=== PATIENT | female | born 1965 | race African-American/Black ===

== ENCOUNTER 2020-05-12 23:57 | Inpatient (IN) | payer MEDICARE, SELFPAY ==
[2020-05-13] MEDS ORDERED: Calcium Carbonate 500 MG ChewTAB PO PRN (01:20)
[2020-05-13] MEDS ORDERED: Acetaminophen 325 MG TAB PO PRN (01:20)
[2020-05-13] MEDS ORDERED: Senokot S 8.6-50 MG TAB PO PRN (01:20)
[2020-05-13] MEDS ORDERED: Ondansetron PF 4 MG/2 ML Vial IVP PRN (01:20)
--- NOTE | 2020-05-13 01:37 | PDOC.FPRHP ---
- History of Present Illness Chief Complaint: SOB History of Present Illness: Pt is a 54 yo F with a PMH of HTN, RA, insomnia, chronic back pain, anxiety and depression who presents from the [facility] ED with chief complaint of SOB. She states she has been feeling weak and SOB since . She has noticed associated cough productive of green sputum, ESTRADA, dizziness, decreased appetite that has gradually gotten worse. She states she has been tolerating PO hydration without difficulty. She tried OTC remedies with no relief. Denies sick contacts. Was COVID tested 2 weeks ago because she had access to free COVID testing even though she was asymptomatic. She denies fever, chills, CP, vision changes, nausea, vomiting, abdominal pain, dysuria, syncope, diarrhea, swelling. She lives at home with her boyfriend and is able to independently perform her ADLs. She does not require home O2 and denies history of cardiac or lung disease. ED Course: In the [place] ED: 2g Rocephin, 500 mg Azithromycin, 1.4 L of NS, Ibuprofen, 60mg Methylprednisolone, Duonebs - Allergies/Adverse Reactions Allergies Allergy/AdvReac Type Severity Reaction Status Date / Time No Known Allergies Allergy Unverified 05/12/20 15:14 - History PMHx: HTN, RA, insomnia, chronic back pain, anxiety and depression PSHx: BTL FHx: Denies Social: on disability 2/2 RA. Denies tobacco, drug, alcohol use. - Review of Systems General: reports: weight/appetite/sleep changes (appetite changes). denies: fever/chills Eyes: denies: vision changes ENT: denies: nasal congestion Respiratory: reports: cough, shortness of breath, exercise intolerance Cardiovascular: denies: chest pain, palpitation, edema Gastrointestinal: denies: nausea, vomiting, diarrhea, abdominal pain, GI bleeding Genitourinary: denies: dysuria Skin: denies: rashes Neurological: reports: weakness. denies: syncope Psychological: denies: anxiety, depression - Vital signs BP: 123/79 HR: 106 RR: 40 Tmax: 98.9 Pox: 91% on 6L - Physical Exam Constitutional: NAD, awake, alert and oriented HEENT: normocephalic and atraumatic, conjunctiva clear, grossly normal vision, other (mucous membranes dry) Neck: supple, FROM Heart: RRR, normal S1/S2, pulses present, no edema Lungs: no respiratory distress -Lungs: crackles diffusely on exam in all lobes Abdomen: soft, non-tender, bowel sounds present, no masses/distention Musculoskeletal: normal structure, normal tone, ROM grossly normal Neurological: no focal deficit, CN II-XII intact Skin: good turgor Heme/Lymphatic: no unusual bruising or bleeding Psychiatric: normal mood and affect, good judgment and insight, intact recent and remote memory FMR H&P: A/P - Plan #Acute hypoxic respiratory failure and sepsis 2/2 PNA -CXR at [facility] showed extensive infiltrates, multifocal infection -patient tachypneic and tachycardic, 86% on RA with arrival of EMS -COVID, Flu neg -s/p 2g Rocephin, 500mg Azithro, 60mg Methylprednisolone at outside facility -patient has been requiring anywhere from 4-6L of O2 via NC -has been afebrile, WBC of 8.2 -will continue with Rocephin and Azithro -Duonebs q6H LUIS, q4H PRN -blood cultures pending -trend Procal -weane oxygen as able #Mild dehydration -decreased PO intake -mucus membranes dry on exam -continue MIVF, continue to monitor # Microcytic anemia -MCV of 76, Hgb of 11.2 on admission -will follow up iron studies #Hypokalemia -replace as indicated -follow up with AM CMP -Mg and Phos ordered #HTN -aware, patient states she is not on home meds -will follow up with pharmacy and restart home meds as indicated -Labetalol PRN #RA -patient states she takes Gabapentin for RA-? -will resume home med and follow up with pharmacy to confirm home meds #Insomnia -will add Melatonin QHS #Anxiety/ Depression -aware, patient says she does not take home meds -will follow up with pharmacy Dipo: admit to inpatient tele, anticipated LOS >48hours IVF: 125mL/hr of NS Diet: HH DVT Ppx: Lovenox Code: FULL PCP: [facility] FMR H&P: Upper Level - Plan Date/Time: 05/13/20 0136 Radha Whelan, have evaluated this patient and agree with findings/plan as outlined by newsroom intern resident. Pertinent changes/additions are listed here. HPI: 54 yo F with PMH of RA, HTN, insomnia, chronic back pain presented as a transfer from [place] ER for SOB, productive cough, headache that started four days ago. Associated symptoms include muscle pain in her legs, decreased appetite, light- headedness. Denies fever, loss of taste or smell, sick contacts, known COVID contacts. Upon EMS arrival, was satting 86% on RA. In [place] ED, she was tachycardic and tachypneic. CBC showed normal WBC, CXR showed bilateral infiltrates. Covid and influenza testing was negative. In [place] ED, she was given ceftriaxone, azithromycin, 1400 ml NS, and ibuprofen, and 60 mg methylprednisolone Physical exam: On physical exam, appears comfortable on 4L BNC. Bilateral inspiratory and expiratory crackles at bases of her lungs with tachypnea. Cardiac: RRR no murmurs. No swelling to her lower extremities. Pulses 2+ upper and lower extremities. Abdomen: soft and nontender, +BS. A/P: Acute hypoxic Respiratory Failure & Sepsis 2/2 bilateral multifocal pneumonia -Influenza and covid swab negative. Meets sepsis criteria as she is tachypneic and tachycardic. Lactic acid WNL. Was satting 86% on RA upon EMS arrival. -Continue rocephin and azithromycin -Supplemental oxygen, Keep O2 sats >92 -Blood cultures pending -Trend Procal Mild dehydration -Mucous membranes appears dry -s/p 1400 ml IV fluids. Continue MIVF, encourage PO hydration Microcytic anemia -Fe studies pending Hypokalemia -monitor and replete as necessary. Checking AM mag and phos. For other chronic problems, please see newsroom intern note. PCP: Dr Claros/Arsalan Code: Full Dispo: Admit to inpatient telemetry, LOS >2 midnights. Continue antibiotics and supplemental oxygen. Awaiting blood culture results. Drea Johnson MD PGY3
[2020-05-13] MEDS ORDERED: Potassium Chloride 20 MEQ TAB PO SCH (01:45)
[2020-05-13] MEDS ORDERED: Labetalol HCl 100 MG/20 ML VIAL SLOW IVP PRN (01:56)
[2020-05-13] MEDS ORDERED: NS1000 IV SCH (02:00)
[2020-05-13] MEDS ORDERED: Sodium Chloride 0.9% 1,000 ML IV SCH (02:00)
[2020-05-13] MEDS ORDERED: Melatonin 3 MG TAB PO PRN (02:07)
[2020-05-13 02:29] LABS: #Lymphocytes 0.7 thou/uL (1.20-3.40); #Monocytes 0.4 thou/uL (0.11-0.59); #Neutrophils 9.4 thou/uL (1.40-6.50); %Basophils 0.1 % (0.0-1.0); %Eosinophils 0.1 % (0.0-10.0); %Lymphocytes 6.5 % (21.0-51.0); %Monocytes 3.5 % (0.0-10.0); %Neutrophils 89.8 % (42.0-75.0); Hemoglobin 11.4 g/dL (12.0-16.0); Mean Corpuscular HGB CONC 31.9 g/dL (32.0-36.0); Mean Corpuscular Hemoglobin 24.6 pg (27.0-31.0); Mean Corpuscular Volume 77.3 fL (78.0-98.0); Mean Platelet Volume 8.7 fL (7.4-10.4); Platelet Count 239 thou/uL (130-400); RBC Distribution Width 14.7 % (11.5-14.5); Red Blood Cell (RBC) Count 4.61 mill/uL (4.20-5.40); White Blood Cell (WBC) Count 10.5 thou/uL (4.8-10.8)
[2020-05-13 03:16] LABS: ALT (SGPT) 20 U/L (8-55); AST (SGOT) 32 U/L (5-34); Albumin 3.3 g/dL (3.5-5.0); Alkaline Phosphatase 96 U/L (40-110); Anion Gap 17 mmol/L (10-20); BUN (Urea Nitrogen) 8 mg/dL (9.8-20.1); Bilirubin, Total 0.3 mg/dL (0.2-1.2); Calc. Creatinine Clearance 0 mL/min (70-130); Calcium 8.1 mg/dL (7.8-10.44); Carbon Dioxide 24 mmol/L (22-29); Chloride 107 mmol/L (98-107); Globulin 3.7 g/dL (2.4-3.5); Glucose 97 mg/dL (70-105); Magnesium 2.2 mg/dL (1.6-2.6); Potassium 3.6 mmol/L (3.5-5.1); Sodium 144 mmol/L (136-145)
[2020-05-13 04:00] LABS: Actual Bicarbonate (HCO3a) 28.4 mEq/L (22-28); Base Excess (BEa) 2.4 mEq/L (-2.0 to +3.0); CO2 Tension 49.9 mmHg (35.0-45.0); Calcium, Ionized (arterial) 1.13 mmol/L (1.12-1.30); Carboxyhemoglobin (COHb) 0.7 gm% (0.0-3.0); Hemoglobin (Hb) 11.9 g/dL (12.0-16.0); Potassium - ABG Lab 3.77 mmol/L (3.70-5.30); pH, Arterial 7.37 (7.35-7.45)
[2020-05-13 04:03] LABS: ALV-art Gradient 166.925 mmHg (0-20); O2 Tension (PaO2), arterial 55.9 mmHg (80.0-100.0); Puncture Site RRA
[2020-05-13 05:06] VITALS: BMI 40.1
[2020-05-13 05:34] LABS: Iron 10 ug/dL (50-170); Iron Binding Capacity, Total 275 mcg/dL (265-497)
[2020-05-13 05:38] LABS: Iron 17 ug/dL (50-170); Iron Binding Capacity, Total 276 mcg/dL (265-497); Phosphorus 2.6 mg/dL (2.3-4.7)
[2020-05-13 05:43] LABS: Actual Bicarbonate (HCO3a) 29.1 mEq/L (22-28); Base Excess (BEa) 3.3 mEq/L (-2.0 to +3.0); CO2 Tension 49.9 mmHg (35.0-45.0); Calcium, Ionized (arterial) 1.14 mmol/L (1.12-1.30); Carboxyhemoglobin (COHb) 0.7 gm% (0.0-3.0); Hemoglobin (Hb) 12.1 g/dL (12.0-16.0); O2 Tension (PaO2), arterial 63.6 mmHg (80.0-100.0); Potassium - ABG Lab 3.87 mmol/L (3.70-5.30); pH, Arterial 7.38 (7.35-7.45)
[2020-05-13 05:45] LABS: ALV-art Gradient 351.735 mmHg (0-20); Puncture Site RRA
[2020-05-13] MEDS ORDERED: Albuterol 200 PUFF (6.7GM INHALER) INH SCH (06:30)
[2020-05-13] MEDS ORDERED: PROVENTIL INHALER 6.7 G (200 INHALATIONS) INH SCH (06:30)
[2020-05-13] MEDS: Enoxaparin Sodium 40 MG/0.4 ML SYRINGE SC SCH (09:39)
[2020-05-13] MEDS: Azithromycin 500 MG in Sodium Chloride 0.9% 250 ML 250 ML IVPB SCH (09:39)
[2020-05-13] MEDS: cefTRIAXone\\ROCEPHIN 1 GM in Sodium Chloride 0.9% 100 ML IVPB SCH (09:39)
[2020-05-13 09:51] LABS: SARS-CoV-2 MS2 Positive; SARS-CoV-2 N Gene Negative; SARS-CoV-2 S Gene Negative; SARS-CoV-2 by NAA Not Detected (NotDetected); SARS-CoV-2 orf1ab Negative
--- NOTE | 2020-05-13 09:53 | RAD ---
PORTABLE CHEST: Date: 05/13/2020 COMPARISON: 05/12/2020 exam. HISTORY: Follow-up pneumonia. FINDINGS: Heart size is borderline. Extensive bilateral lung infiltrates are again noted. Some of the changes i n the upper lobes may be slightly more prominent than on the prior exam, although inspiration is less than optimal. IMPRESSION: Fairly extensive bilateral infiltrates, maybe slight worsening to the upper lobe changes. POS: OFF
[2020-05-13 10:25] LABS: Base Excess (BEa) 0.7 mEq/L (-2.0 to +3.0); CO2 Tension 39.3 mmHg (35.0-45.0); Calcium, Ionized (arterial) 1.15 mmol/L (1.12-1.30); Carboxyhemoglobin (COHb) 0.6 gm% (0.0-3.0); Hemoglobin (Hb) 12.1 g/dL (12.0-16.0); Potassium - ABG Lab 4.23 mmol/L (3.70-5.30); pH, Arterial 7.42 (7.35-7.45)
[2020-05-13 13:16] LABS: ALV-art Gradient 349.565 mmHg (0-20); O2 Tension (PaO2), arterial 50.5 mmHg (80.0-100.0); Puncture Site LBA
[2020-05-13] MEDS: Dexamethasone 4 MG TAB PO SCH (16:09)
[2020-05-13] MEDS: Mometasone 100 MCG/Formoterol 5 MCG 120 PUFF INHALER INH SCH (23:16)
--- NOTE | 2020-05-14 06:05 | PDOC.FM ---
- Subjective Subjective: Ms. Arias is feeling well this morning and is sitting up on EOB. She endorses a cough productive of green-tinged sputum. Her breaths are shallow and she makes minimal movement on IS. She denies CP, pain with deep breaths, dyspnea/SOB, ESTRADA, N/V/D. She states she is not eating well because she is not hungry, but that she has been drinking lots of fluids. She is wanting to go home but is still requiring HFNC at 60L with FiO2 in the 60s. - Objective Vital Signs & Weight: Vital Signs (12 hours) Temp Pulse Resp BP Pulse Ox 05/14/20 04:00 97 34 H 138/92 H 94 L 05/14/20 00:00 99.5 F 83 22 H 121/76 94 L 05/13/20 21:10 98.4 F 94 40 H 147/88 H 96 Weight Weight 90.265 kg I&O: 05/12/20 05/13/20 05/14/20 06:59 06:59 06:59 Intake Total 480 Output Total 600 Balance -120 Result Diagrams: 05/13/20 02:00 05/13/20 02:00 Phys Exam - Physical Examination Constitutional: NAD Neck: supple, full ROM Shallow breaths with poor air movememnt No audible wheezing/crackles Cardiovascular: RRR, no significant murmur Musculoskeletal: no edema Neurological: non-focal, moves all 4 limbs Psychiatric: normal affect Skin: no rash Dx/Plan - Plan Plan: This is a 54F who presented to the ED with SOB, found to have a b/l PNA. Acute hypoxic respiratory failure and sepsis 2/2 PNA Concern for COVID PNA despite neg Covid tests -CXR at [facility] showed extensive infiltrates, multifocal infection -Flu neg, COVID neg x2 -Afebrile, nml WBC, procal 0.12 -patient has been requiring HFNC at 60L with FiO2 in the 60s, since admission. RR has been in the 20-40s - RT to wean O2 as tolerated * If unable to make much progress, will consult pulm -ABGs have showed improved pCO2. Repeat ABG if pt deteriorates -will continue with Rocephin, Azithro, Decadron -Dulera ordered -blood cultures pending -Covid labs ordered: procal, d-dimer, CRP, LDH * Ferritin nml but with suspicion for Fe def anemia, it is unclear whether this is elevated from her baseline Mild dehydration -decreased PO intake -off mIVF. Monitor I&Os Microcytic anemia -MCV of 76, Hgb of 11.2 on admission -Iron studies show low Fe, low %sat. * Ferritin nml but it's possible this is elevated from baseline d/t inflammatory marker Hypokalemia, resolved -replace as indicated -Mg and Phos nml -am BMP pending HTN -patient states she is not on home meds. Will med rec today -Labetalol PRN -Monitor vitals RA -patient states she takes Gabapentin for RA -will med rec and continue home meds Insomnia -will add Melatonin QHS Anxiety/ Depression -patient says she does not take home meds Dipo: admit to inpatient tele, anticipated LOS >48hours IVF: SL Diet: HH DVT Ppx: Lovenox Code: FULL PCP: Harlan/Arsalan
[2020-05-14] MEDS ORDERED: Albuterol Sulfate 2.5 mg/3 ml Neb NEB PRN (06:45)
[2020-05-14] MEDS: cefTRIAXone\\ROCEPHIN 1 GM in Sodium Chloride 0.9% 100 ML IVPB SCH (08:40)
[2020-05-14] MEDS: Enoxaparin Sodium 40 MG/0.4 ML SYRINGE SC SCH (08:40)
[2020-05-14] MEDS: Azithromycin 500 MG in Sodium Chloride 0.9% 250 ML 250 ML IVPB SCH (08:43)
[2020-05-14 11:26] LABS: #Lymphocytes 0.9 thou/uL (1.20-3.40); #Neutrophils 6.7 thou/uL (1.40-6.50); %Basophils 0.3 % (0.0-1.0); %Eosinophils 0.1 % (0.0-10.0); %Lymphocytes 10.8 % (21.0-51.0); %Monocytes 11.5 % (0.0-10.0); %Neutrophils 77.3 % (42.0-75.0); Mean Corpuscular Hemoglobin 23.8 pg (27.0-31.0); Mean Corpuscular Volume 76.6 fL (78.0-98.0); Mean Platelet Volume 8.4 fL (7.4-10.4); Platelet Count 343 thou/uL (130-400); RBC Distribution Width 14.8 % (11.5-14.5); Red Blood Cell (RBC) Count 5.03 mill/uL (4.20-5.40); White Blood Cell (WBC) Count 8.7 thou/uL (4.8-10.8)
[2020-05-14 11:54] LABS: Anion Gap 16 mmol/L (10-20); BUN (Urea Nitrogen) 15 mg/dL (9.8-20.1); CRP (Inflammatory) 10.82 mg/dL (= or < 0.5); Calc. Creatinine Clearance 145 mL/min (70-130); Calcium 8.8 mg/dL (7.8-10.44); Carbon Dioxide 26 mmol/L (22-29); Chloride 104 mmol/L (98-107); Glucose 111 mg/dL (70-105); Potassium 3.7 mmol/L (3.5-5.1); Sodium 142 mmol/L (136-145)
[2020-05-14] MEDS: Ketotifen Fumarate 0.025% Ophth Soln 5 ml Bottle R EYE SCH ×2 (12:14→19:57)
[2020-05-14] MEDS: Ketotifen Fumarate 0.025% Ophth Soln 5 ml Bottle L EYE SCH ×2 (12:14→19:57)
[2020-05-14] MEDS: Mometasone 100 MCG/Formoterol 5 MCG 120 PUFF INHALER INH SCH ×2 (14:03→19:42)
[2020-05-14] MEDS: Dexamethasone 4 MG TAB PO SCH (17:40)
[2020-05-14 22:20] LABS: SARS-CoV-2 IgG Ab Reactive (NonReactive); SARS-CoV-2 IgG Index 7.34 S/CO (< 1.40)
[2020-05-15 05:29] LABS: #Lymphocytes 0.8 thou/uL (1.20-3.40); #Monocytes 0.5 thou/uL (0.11-0.59); %Eosinophils 0.1 % (0.0-10.0); %Lymphocytes 10.8 % (21.0-51.0); %Monocytes 6.4 % (0.0-10.0); %Neutrophils 82.7 % (42.0-75.0); Hemoglobin 11.5 g/dL (12.0-16.0); Mean Corpuscular HGB CONC 31.5 g/dL (32.0-36.0); Mean Corpuscular Hemoglobin 23.7 pg (27.0-31.0); Mean Corpuscular Volume 75.4 fL (78.0-98.0); Mean Platelet Volume 8.2 fL (7.4-10.4); Platelet Count 345 thou/uL (130-400); RBC Distribution Width 14.4 % (11.5-14.5); Red Blood Cell (RBC) Count 4.87 mill/uL (4.20-5.40); White Blood Cell (WBC) Count 7.3 thou/uL (4.8-10.8)
[2020-05-15 05:56] LABS: ALT (SGPT) 22 U/L (8-55); AST (SGOT) 24 U/L (5-34); Albumin 3.3 g/dL (3.5-5.0); Alkaline Phosphatase 85 U/L (40-110); Anion Gap 14 mmol/L (10-20); BUN (Urea Nitrogen) 16 mg/dL (9.8-20.1); Bilirubin, Total 0.3 mg/dL (0.2-1.2); Calc. Creatinine Clearance 150 mL/min (70-130); Calcium 8.5 mg/dL (7.8-10.44); Carbon Dioxide 28 mmol/L (22-29); Chloride 105 mmol/L (98-107); Globulin 3.9 g/dL (2.4-3.5); Glucose 107 mg/dL (70-105); Potassium 4.2 mmol/L (3.5-5.1); Protein, Total 7.2 g/dL (6.0-8.3); Sodium 143 mmol/L (136-145)
--- NOTE | 2020-05-15 05:57 | PDOC.FM ---
- Subjective Subjective: Ms. Arias is doing well this morning and wants to go home. She continues to require HFNC at 60L and FiO2 in the 60s. She denies SOB, dyspnea, pleuritic pain, CP, N/V/D. She endorses cough productive of clear sputum. She has been using her IS and can raise the marker to 500 but continues to have poor effort. She has been using the dulera inhaler and is adamant she just wants to go home with some O2. - Objective Vital Signs & Weight: Vital Signs (12 hours) Temp Pulse Resp BP Pulse Ox 05/15/20 04:13 96 05/15/20 04:08 98.4 F 66 34 H 140/79 95 05/14/20 23:55 98.5 F 74 22 H 132/75 97 05/14/20 19:55 98.4 F 84 28 H 121/75 93 L Weight Weight 90.265 kg I&O: 05/13/20 05/14/20 05/15/20 06:59 06:59 06:59 Intake Total 480 980 Output Total 600 500 Balance -120 480 Result Diagrams: 05/15/20 05:11 05/15/20 05:11 Phys Exam - Physical Examination Constitutional: NAD Neck: supple, full ROM Respiratory: clear to auscultation bilateral (poor effort and air movement) Cardiovascular: RRR, no significant murmur Neurological: non-focal, moves all 4 limbs Psychiatric: normal affect Dx/Plan - Plan Plan: This is a 54F who presented to the ED with SOB, found to have a b/l PNA. Acute hypoxic respiratory failure and sepsis 2/2 Covid PNA -Positive Covid Ab test * Start Remdesivir -patient has been requiring HFNC at 60L with FiO2 in the 60s, since admission. RR has been in the 20-40s * RT to wean O2 as tolerated -ABG if pt deteriorates -will continue with Rocephin, Azithro, Decadron, Dulera, Lovenox -procal 0.12 -> 0.07 -Covid labs ordered: * Ferritin nml but with suspicion for Fe def anemia, it is unclear whether this is elevated from her baseline * CRP 10.82 * LDH 574 * D-dimer 2.96 -> 3.06 -CBC, CMP, D-dimer trending -blood cultures NGTD Mild dehydration -Monitor I&Os Microcytic anemia -MCV of 76, Hgb of 11.2 on admission -Iron studies show low Fe, low %sat. * Ferritin nml but it's possible this is elevated from baseline d/t inflammatory marker -Fe supplementation qod Hypokalemia, resolved -am BMPs. Replete as needed HTN -patient states she is not on home meds -Labetalol PRN -Monitor vitals RA -patient states she takes Gabapentin for RA but pharmacy states Rx was last filled in 2019 -Currently, pt denying any pain/discomfort Insomnia -will add Melatonin QHS Anxiety/ Depression -patient says she does not take home meds Dipo: admit to inpatient tele, anticipated LOS >48hours IVF: SL Diet: HH DVT Ppx: Lovenox Code: FULL PCP: Harlan/Arsalan
[2020-05-15] MEDS: Mometasone 100 MCG/Formoterol 5 MCG 120 PUFF INHALER INH SCH ×2 (06:23→18:17)
[2020-05-15] MEDS: cefTRIAXone\\ROCEPHIN 1 GM in Sodium Chloride 0.9% 100 ML IVPB SCH (08:08)
[2020-05-15] MEDS: Enoxaparin Sodium 40 MG/0.4 ML SYRINGE SC SCH (08:09)
[2020-05-15] MEDS: Ferrous Sulfate 325 MG TAB PO SCH (08:09)
[2020-05-15] MEDS: Ketotifen Fumarate 0.025% Ophth Soln 5 ml Bottle L EYE SCH ×2 (08:10→20:27)
[2020-05-15] MEDS: Ketotifen Fumarate 0.025% Ophth Soln 5 ml Bottle R EYE SCH ×2 (08:11→20:28)
[2020-05-15] MEDS ORDERED: REMDESIVIR (EUA) 200 MG in Sodium Chloride 0.9% 250 ML 210 ML IV SCH (09:00)
[2020-05-15] MEDS: Azithromycin 500 MG in Sodium Chloride 0.9% 250 ML 250 ML IVPB SCH (11:19)
[2020-05-15] MEDS: Dexamethasone 4 MG TAB PO SCH (18:13)
[2020-05-16 05:21] LABS: #Lymphocytes 1.1 thou/uL (1.20-3.40); #Monocytes 0.9 thou/uL (0.11-0.59); #Neutrophils 7.7 thou/uL (1.40-6.50); %Basophils 0.3 % (0.0-1.0); %Eosinophils 0.1 % (0.0-10.0); %Monocytes 9.5 % (0.0-10.0); %Neutrophils 79.1 % (42.0-75.0); Hemoglobin 11.8 g/dL (12.0-16.0); Mean Corpuscular HGB CONC 31.5 g/dL (32.0-36.0); Mean Corpuscular Hemoglobin 23.9 pg (27.0-31.0); Mean Corpuscular Volume 75.8 fL (78.0-98.0); Mean Platelet Volume 8.4 fL (7.4-10.4); Platelet Count 372 thou/uL (130-400); RBC Distribution Width 14.6 % (11.5-14.5); Red Blood Cell (RBC) Count 4.94 mill/uL (4.20-5.40); White Blood Cell (WBC) Count 9.8 thou/uL (4.8-10.8)
[2020-05-16 05:36] LABS: ALT (SGPT) 20 U/L (8-55); AST (SGOT) 20 U/L (5-34); Albumin 3.3 g/dL (3.5-5.0); Alkaline Phosphatase 79 U/L (40-110); Anion Gap 16 mmol/L (10-20); BUN (Urea Nitrogen) 14 mg/dL (9.8-20.1); Bilirubin, Direct 0.1 mg/dL (0.1-0.3); Bilirubin, Total 0.3 mg/dL (0.2-1.2); Calc. Creatinine Clearance 152 mL/min (70-130); Calcium 8.5 mg/dL (7.8-10.44); Carbon Dioxide 24 mmol/L (22-29); Chloride 105 mmol/L (98-107); Globulin 3.8 g/dL (2.4-3.5); Glucose 98 mg/dL (70-105); Potassium 4.3 mmol/L (3.5-5.1); Protein, Total 7.1 g/dL (6.0-8.3); Sodium 141 mmol/L (136-145)
[2020-05-16] MEDS: Mometasone 100 MCG/Formoterol 5 MCG 120 PUFF INHALER INH SCH ×2 (06:09→21:29)
--- NOTE | 2020-05-16 06:21 | PDOC.FM ---
- Subjective Subjective: Ms. Arias is doing well this morning. She continues to deny dyspnea/SOB/CP/N/V/D. She is feeling well and enjoyed working with PT yesterday. She continues to insist she is ready to go home with some O2. She was at SpO2 9 0% at 6L NC. I will see if she can increase her SpO2 at this level. - Objective Vital Signs & Weight: Vital Signs (12 hours) Temp Pulse Resp BP Pulse Ox 05/16/20 03:51 98.4 F 78 20 135/74 97 05/16/20 00:05 98.1 F 82 20 146/75 H 100 05/15/20 20:15 98.4 F 80 20 145/70 H 98 05/15/20 19:53 94 L Weight Weight 90.265 kg I&O: 05/14/20 05/15/20 05/16/20 06:59 06:59 06:59 Intake Total 480 1280 1680 Output Total 600 500 Balance -880 252 8409 Result Diagrams: 05/16/20 05:01 05/16/20 05:01 Phys Exam - Physical Examination Constitutional: NAD Neck: supple Coarse breath sounds b/l Cardiovascular: RRR, no significant murmur Neurological: non-focal, moves all 4 limbs Psychiatric: normal affect, A&O x 3 Skin: no rash Dx/Plan - Plan Plan: This is a 54F who presented to the ED with SOB, found to have a b/l PNA. Acute hypoxic respiratory failure and sepsis 2/2 Covid PNA -Positive Covid Ab test. On Remdesivir -patient has been requiring HFNC at 60L with FiO2 in the 60s, since admission. * RT to wean O2 as tolerated * ABG if pt deteriorates -RR now in the 20s. Will attempt de-escalating to NC today -Consider CTA to r/o PE if resp status fails to improve -will continue with Rocephin, Azithro, Decadron, Dulera, Lovenox -CBC, CMP, D-dimer trending * D-dimer 2.96 -> 3.06 -> 3.24 -PT consulted to help limit deconditioning Mild dehydration -Monitor I&Os Microcytic anemia -MCV of 76, Hgb of 11.2 on admission -Iron studies show low Fe, low %sat. * Ferritin nml but it's possible this is elevated from baseline d/t inflammatory marker -Fe supplementation qod Hypokalemia, resolved -am BMPs. Replete as needed HTN -patient states she is not on home meds -Labetalol PRN -Monitor vitals RA -patient states she takes Gabapentin for RA but pharmacy states Rx was last filled in 2019 -Currently, pt denying any pain/discomfort Insomnia -will add Melatonin QHS Anxiety/ Depression -patient says she does not take home meds Dipo: admit to inpatient tele, anticipated LOS >48hours IVF: SL Diet: HH DVT Ppx: Lovenox Code: FULL PCP: [facility]/Arsalan
[2020-05-16] MEDS: Enoxaparin Sodium 40 MG/0.4 ML SYRINGE SC SCH (07:51)
[2020-05-16] MEDS: cefTRIAXone\\ROCEPHIN 1 GM in Sodium Chloride 0.9% 100 ML IVPB SCH (07:52)
[2020-05-16] MEDS: hydrOXYzine 10 MG TAB PO PRN (07:53)
[2020-05-16] MEDS: Ketotifen Fumarate 0.025% Ophth Soln 5 ml Bottle R EYE SCH ×2 (09:00→21:30)
[2020-05-16] MEDS: Ketotifen Fumarate 0.025% Ophth Soln 5 ml Bottle L EYE SCH ×2 (09:00→21:30)
[2020-05-16] MEDS: REMDESIVIR (EUA) 100 MG in Sodium Chloride 0.9% 250 ML 230 ML IV SCH (09:00)
[2020-05-16] MEDS: Dexamethasone 4 MG TAB PO SCH (18:21)
[2020-05-17] MEDS: hydrOXYzine 10 MG TAB PO PRN (00:47)
--- NOTE | 2020-05-17 05:32 | PDOC.FM ---
- Subjective Subjective: Ms. Arias is doing well this morning and continues to state she wants to go home. She continues to deny dyspnea, SOB, CP, N/V/D but her respiratory effort remains poor and she can only achieve ~250mL on IS. She is satting in the mid- 90s on HFNC 55L, 78% FiO2. - Objective Vital Signs & Weight: Vital Signs (12 hours) Temp Pulse Resp BP BP Pulse Ox 05/17/20 01:49 94 L 05/17/20 00:00 97.9 F 95 18 118/73 94 L 05/16/20 19:35 98.5 F 97 18 119/75 91 L 05/16/20 18:00 98.8 F 89 25 H 143/82 H 92 L Weight Weight 90.265 kg I&O: 05/15/20 05/16/20 05/17/20 06:59 06:59 06:59 Intake Total 1280 1680 Output Total 500 Balance 780 1680 Result Diagrams: 05/17/20 06:51 05/17/20 06:51 Phys Exam - Physical Examination Constitutional: NAD Neck: supple Coarse breath sounds, poor resp effort Cardiovascular: RRR, no significant murmur Neurological: non-focal, moves all 4 limbs Psychiatric: normal affect, A&O x 3 Skin: no rash Dx/Plan - Plan Plan: This is a 54F who presented to the ED with SOB, found to have a b/l PNA. Acute hypoxic respiratory failure and sepsis 2/2 Covid PNA -Positive Covid Ab test. On Remdesivir -patient has been requiring HFNC. Attempted de-escalation to NC yesterday but had to be put back on HFNC * RT to wean O2 as tolerated * ABG if pt deteriorates -Consider CTA to r/o PE if resp status fails to improve -will continue Decadron, Dulera, Lovenox -CBC, CMP, D-dimer trending * D-dimer 2.96 > > 3.65 -PT consulted to help limit deconditioning -Continue encouraging use of IS Mild dehydration -Monitor I&Os Microcytic anemia -MCV of 76, Hgb of 11.2 on admission -Iron studies show low Fe, low %sat. * Ferritin nml but it's possible this is elevated from baseline d/t inflammatory marker -Fe supplementation qod Hypokalemia, resolved -am BMPs. Replete as needed HTN -patient states she is not on home meds -Labetalol PRN -Monitor vitals RA -patient states she takes Gabapentin for RA but pharmacy states Rx was last filled in 2019 -Currently, pt denying any pain/discomfort Insomnia -will add Melatonin QHS Anxiety/ Depression -patient says she does not take home meds Dipo: admit to inpatient tele, anticipated LOS >48hours IVF: SL Diet: HH DVT Ppx: Lovenox Code: FULL PCP: [facility] Addendum - Attending - Attending Attestation Date/Time: 05/17/20 0587 I personally evaluated the patient and discussed the management with Dr. Ginger Jose. I agree with the History, Examination, Assessment and Plan documented above with any addition or exceptions noted below. The patient had to be put back on high-flow oxygen yesterday. She wants to go home but I counseled on importance of staying until oxygen requirement is decreased. continue remdesivir.
[2020-05-17 07:33] LABS: ALT (SGPT) 17 U/L (8-55); AST (SGOT) 20 U/L (5-34); Albumin 3.4 g/dL (3.5-5.0); Alkaline Phosphatase 86 U/L (40-110); Anion Gap 17 mmol/L (10-20); BUN (Urea Nitrogen) 14 mg/dL (9.8-20.1); Bilirubin, Total 0.4 mg/dL (0.2-1.2); Calc. Creatinine Clearance 150 mL/min (70-130); Calcium 8.8 mg/dL (7.8-10.44); Carbon Dioxide 23 mmol/L (22-29); Chloride 105 mmol/L (98-107); Globulin 4.1 g/dL (2.4-3.5); Glucose 90 mg/dL (70-105); Potassium 4.3 mmol/L (3.5-5.1); Protein, Total 7.5 g/dL (6.0-8.3); Sodium 141 mmol/L (136-145)
[2020-05-17 08:05] LABS: Hemoglobin 12.5 g/dL (12.0-16.0); Mean Corpuscular HGB CONC 31.5 g/dL (32.0-36.0); Mean Corpuscular Hemoglobin 23.9 pg (27.0-31.0); Mean Corpuscular Volume 75.7 fL (78.0-98.0); Mean Platelet Volume 8.3 fL (7.4-10.4); Platelet Count 405 thou/uL (130-400); Red Blood Cell (RBC) Count 5.22 mill/uL (4.20-5.40); White Blood Cell (WBC) Count 11.8 thou/uL (4.8-10.8)
[2020-05-17] MEDS: Enoxaparin Sodium 40 MG/0.4 ML SYRINGE SC SCH (08:07)
[2020-05-17] MEDS: Ferrous Sulfate 325 MG TAB PO SCH (08:07)
[2020-05-17] MEDS: Mometasone 100 MCG/Formoterol 5 MCG 120 PUFF INHALER INH SCH ×2 (08:12→19:41)
[2020-05-17] MEDS: REMDESIVIR (EUA) 100 MG in Sodium Chloride 0.9% 250 ML 230 ML IV SCH (09:05)
[2020-05-17] MEDS: Ketotifen Fumarate 0.025% Ophth Soln 5 ml Bottle L EYE SCH ×2 (09:38→21:00)
[2020-05-17] MEDS: Ketotifen Fumarate 0.025% Ophth Soln 5 ml Bottle R EYE SCH ×2 (09:38→21:00)
[2020-05-17 10:43] LABS: Anisocytosis SLIGHT = 6-15 cells (100X) (0-5/hpf); Lymphocytes 15 % (21-51); MDiff Complete? YES; Monocytes 6 % (0-10); Neutrophil 79 % (42-75); Platelet Morphology Comment Appears Increased; Polychromasia SLIGHT = 2-3 cells (100X) (0-2/hpf)
[2020-05-17] MEDS: Dexamethasone 4 MG TAB PO SCH (16:42)
--- NOTE | 2020-05-18 06:09 | PDOC.FM ---
- Subjective Subjective: Ms. Arias is doing well this morning. She continues to desire to go home. She continues to deny SOB, dyspnea, CP, N/V/D. She continues to work with PT. - Objective Vital Signs & Weight: Vital Signs (12 hours) Temp Pulse Resp BP BP Pulse Ox 05/18/20 04:00 97.8 F 93 20 116/76 91 L 05/18/20 00:58 98.0 F 87 18 123/77 94 L 05/18/20 00:19 93 L 05/17/20 20:26 89 163/98 H 05/17/20 20:10 97.7 F 89 22 H 168/93 H 93 L Weight Weight 90.265 kg I&O: 05/16/20 05/17/20 05/18/20 06:59 06:59 06:59 Intake Total 1680 840 Balance 1680 840 Result Diagrams: 05/18/20 05:52 05/18/20 05:52 Phys Exam - Physical Examination Constitutional: NAD Neck: supple Respiratory: clear to auscultation bilateral Poor effort and air movement Cardiovascular: RRR, no significant murmur Neurological: non-focal, moves all 4 limbs Psychiatric: normal affect, A&O x 3 Dx/Plan - Plan Plan: This is a 54F who presented to the ED with SOB, found to have a b/l PNA. Acute hypoxic respiratory failure and sepsis 2/2 Covid PNA -Positive Covid Ab test. Today is day 4 of Remdesivir -patient has been requiring HFNC. Attempted de-escalation to NC but had to be put back on HFNC * RT to wean O2 as tolerated * ABG if pt deteriorates -Consider CTA to r/o PE if resp status fails to improve -will continue Decadron, Dulera, Lovenox -CBC, CMP trending -PT consulted to help limit deconditioning -Continue encouraging use of IS Mild dehydration -Monitor I&Os Microcytic anemia -Fe supplementation qod Hypokalemia, resolved -am CMPs. Replete as needed HTN -patient states she is not on home meds -Labetalol PRN -Monitor vitals RA -Currently, pt denying any pain/discomfort Insomnia -will add Melatonin QHS Anxiety/ Depression -patient says she does not take home meds Dipo: admit to inpatient tele, anticipated LOS >48hours IVF: SL Diet: HH DVT Ppx: Lovenox Code: FULL PCP: [facility] Addendum - Attending - Attending Attestation Date/Time: 05/18/20 8636 I personally evaluated the patient and discussed the management with Dr. Ginger Jose. I agree with the History, Examination, Assessment and Plan documented above with any addition or exceptions noted below. Patient is feeling better however she remains on high flow with sats right at 90%. Will wean as tolerated. Added incentive spirometer. Continue current mgmt.
[2020-05-18 06:32] LABS: #Monocytes 0.8 thou/uL (0.11-0.59); #Neutrophils 10.5 thou/uL (1.40-6.50); %Basophils 0.3 % (0.0-1.0); %Eosinophils 0.3 % (0.0-10.0); %Lymphocytes 7.7 % (21.0-51.0); %Monocytes 6.2 % (0.0-10.0); %Neutrophils 85.5 % (42.0-75.0); Hemoglobin 12.5 g/dL (12.0-16.0); Mean Corpuscular HGB CONC 31.1 g/dL (32.0-36.0); Mean Corpuscular Hemoglobin 23.8 pg (27.0-31.0); Mean Corpuscular Volume 76.6 fL (78.0-98.0); Mean Platelet Volume 8.6 fL (7.4-10.4); Platelet Count 418 thou/uL (130-400); Red Blood Cell (RBC) Count 5.25 mill/uL (4.20-5.40); White Blood Cell (WBC) Count 12.3 thou/uL (4.8-10.8)
[2020-05-18 06:48] LABS: ALT (SGPT) 17 U/L (8-55); AST (SGOT) 18 U/L (5-34); Albumin 3.3 g/dL (3.5-5.0); Alkaline Phosphatase 79 U/L (40-110); Anion Gap 16 mmol/L (10-20); BUN (Urea Nitrogen) 15 mg/dL (9.8-20.1); Bilirubin, Total 0.4 mg/dL (0.2-1.2); Calc. Creatinine Clearance 147 mL/min (70-130); Calcium 8.9 mg/dL (7.8-10.44); Carbon Dioxide 23 mmol/L (22-29); Chloride 102 mmol/L (98-107); Glucose 97 mg/dL (70-105); Potassium 4.2 mmol/L (3.5-5.1); Protein, Total 7.3 g/dL (6.0-8.3); Sodium 137 mmol/L (136-145)
[2020-05-18] MEDS: Ketotifen Fumarate 0.025% Ophth Soln 5 ml Bottle L EYE SCH ×2 (10:00→21:01)
[2020-05-18] MEDS: Enoxaparin Sodium 40 MG/0.4 ML SYRINGE SC SCH (10:15)
[2020-05-18] MEDS: Ketotifen Fumarate 0.025% Ophth Soln 5 ml Bottle R EYE SCH ×2 (10:15→21:01)
[2020-05-18] MEDS: REMDESIVIR (EUA) 100 MG in Sodium Chloride 0.9% 250 ML 230 ML IV SCH (10:18)
[2020-05-18] MEDS: Dexamethasone 4 MG TAB PO SCH (16:25)
--- NOTE | 2020-05-19 05:46 | PDOC.FM ---
- Subjective Subjective: Mrs. Arias is not happy this morning and states she is leaving today. She wants to come off HFNC and be sent home with NC as she has people to look after her at home and knows her sats will stay good if she just relaxes. She states she is going to call her family and get home O2 set up for her today so she can leave by noon. She is still on HFNC 55L/78% but was satting at 97% on it this am. She continues to deny dyspnea, SOB, CP, N/V/D. On IS, she is only able to achieve 250mL. - Objective Vital Signs & Weight: Vital Signs (12 hours) Temp Pulse Resp BP Pulse Ox 05/19/20 04:00 98.5 F 84 18 114/76 97 05/19/20 00:00 98.1 F 84 18 115/77 94 L Weight Weight 90.265 kg I&O: 05/17/20 05/18/20 05/19/20 06:59 06:59 06:59 Intake Total 840 1080 Balance 840 1080 Result Diagrams: 05/19/20 06:13 05/19/20 06:13 Phys Exam - Physical Examination Constitutional: NAD Neck: supple Coarse breath sounds, poor inspiratory volume Cardiovascular: RRR, no significant murmur Neurological: non-focal, moves all 4 limbs Psychiatric: normal affect (upset), A&O x 3 Skin: no rash Dx/Plan - Plan Plan: This is a 54F who presented to the ED with SOB, found to have a b/l PNA. Acute hypoxic respiratory failure and sepsis 2/2 Covid PNA -Positive Covid Ab test. Today is day 5 of Remdesivir -patient has been requiring HFNC. * RT to wean O2 as tolerated * ABG if pt deteriorates -Consider CTA to r/o PE if resp status fails to improve -will continue Decadron, Dulera, Lovenox -PT consulted to help limit deconditioning -Continue encouraging use of IS -Spiritual consult Mild dehydration -Monitor I&Os Microcytic anemia -Fe supplementation qod Hypokalemia, resolved -am CMPs. Replete as needed HTN -patient states she is not on home meds -Labetalol PRN -Monitor vitals RA -Currently, pt denying any pain/discomfort Insomnia -will add Melatonin QHS Anxiety/ Depression -patient says she does not take home meds Dipo: admit to inpatient tele, recommended LOS >48hours although pt may leave AMA today. IVF: SL Diet: HH DVT Ppx: Lovenox Code: FULL PCP: [facility] Addendum - Attending - Attending Attestation Date/Time: 05/19/20 1201 I personally evaluated the patient and discussed the management with Dr. Gonsalves. I agree with the History, Examination, Assessment and Plan documented above with any addition or exceptions noted below. Patient adament about leaving today despite being on HFNC. Will give trial of NC but suspect that her COVID pneumonia and hypoxia is still severe enough that she will not tolerate. She has been counselled extensively by multiple physicians about the dangers of leaving the hospital if not deemed medically stable.
[2020-05-19 07:04] LABS: #Eosinphils 0.1 thou/uL (0.0-0.7); #Lymphocytes 0.7 thou/uL (1.20-3.40); #Monocytes 0.6 thou/uL (0.11-0.59); #Neutrophils 10.2 thou/uL (1.40-6.50); %Eosinophils 0.5 % (0.0-10.0); %Lymphocytes 6.2 % (21.0-51.0); %Neutrophils 88.3 % (42.0-75.0); Hemoglobin 12.3 g/dL (12.0-16.0); Mean Corpuscular HGB CONC 30.6 g/dL (32.0-36.0); Mean Corpuscular Hemoglobin 23.2 pg (27.0-31.0); Mean Corpuscular Volume 75.7 fL (78.0-98.0); Mean Platelet Volume 8.4 fL (7.4-10.4); Platelet Count 422 thou/uL (130-400); White Blood Cell (WBC) Count 11.5 thou/uL (4.8-10.8)
[2020-05-19 07:23] LABS: ALT (SGPT) 15 U/L (8-55); AST (SGOT) 14 U/L (5-34); Albumin 3.3 g/dL (3.5-5.0); Alkaline Phosphatase 75 U/L (40-110); Anion Gap 16 mmol/L (10-20); BUN (Urea Nitrogen) 14 mg/dL (9.8-20.1); Bilirubin, Total 0.4 mg/dL (0.2-1.2); Calc. Creatinine Clearance 155 mL/min (70-130); Calcium 8.9 mg/dL (7.8-10.44); Carbon Dioxide 25 mmol/L (22-29); Chloride 101 mmol/L (98-107); Glucose 93 mg/dL (70-105); Potassium 4.2 mmol/L (3.5-5.1); Protein, Total 7.3 g/dL (6.0-8.3); Sodium 138 mmol/L (136-145)
[2020-05-19] MEDS: Ferrous Sulfate 325 MG TAB PO SCH (09:40)
[2020-05-19] MEDS: REMDESIVIR (EUA) 100 MG in Sodium Chloride 0.9% 250 ML 230 ML IV SCH (09:40)
[2020-05-19] MEDS: Enoxaparin Sodium 40 MG/0.4 ML SYRINGE SC SCH (09:40)
[2020-05-19] MEDS: Ketotifen Fumarate 0.025% Ophth Soln 5 ml Bottle L EYE SCH ×2 (09:55→21:00)
[2020-05-19] MEDS: Mometasone 100 MCG/Formoterol 5 MCG 120 PUFF INHALER INH SCH (09:55)
[2020-05-19] MEDS: Ketotifen Fumarate 0.025% Ophth Soln 5 ml Bottle R EYE SCH ×2 (09:55→21:00)
[2020-05-19] MEDS: Dexamethasone 4 MG TAB PO SCH (20:28)
--- NOTE | 2020-05-20 07:04 | PDOC.FM ---
- Subjective Subjective: Trial of 6L NC yesterday, was placed back onto HFNC yesterday evening. This morning, reports she is feeling well. Continues to deny any SOB or cough. States she is going home today, threatens to leave AMA. - Objective Vital Signs & Weight: Vital Signs (12 hours) Temp Pulse Resp BP BP Pulse Ox 05/20/20 04:00 97.5 F L 84 20 118/79 97 05/20/20 00:00 98.2 F 87 20 104/74 97 05/19/20 19:41 99.0 F 103 H 18 101/64 95 Weight Weight 90.265 kg I&O: 05/19/20 05/20/20 05/21/20 06:59 06:59 06:59 Intake Total 1080 Balance 1080 Result Diagrams: 05/19/20 06:13 05/19/20 06:13 Phys Exam - Physical Examination Constitutional: NAD HEENT: moist MMs coarse breath sounds bilaterally Cardiovascular: RRR, no significant murmur Musculoskeletal: no edema, pulses present Neurological: non-focal, moves all 4 limbs Psychiatric: normal affect, A&O x 3 Skin: no rash, normal turgor Dx/Plan - Plan Plan: This is a 54F who presented to the ED with SOB, found to have a b/l PNA. Acute hypoxic respiratory failure and sepsis 2/2 Covid PNA Positive Covid Ab test. Completed course of remdesivir this admission. Currently on HFNC 55L/79%. - will allow trial of NC again today per patient request - Advised that we do not recommend she leave AMA due to need for supportive oxygen therapy - Consider CTA to r/o PE if resp status fails to improve - will continue Decadron, Dulera, Lovenox - PT consulted to help limit deconditioning - continue incentive spirometer - currently only drawing 200 - Spiritual consult Mild dehydration -Monitor I&Os Microcytic anemia -Fe supplementation qod Hypokalemia, resolved -am CMPs. Replete as needed HTN -patient states she is not on home meds -Labetalol PRN -Monitor vitals RA - endorsing mild joint pains Insomnia -will add Melatonin QHS Anxiety/ Depression -patient says she does not take home meds Dipo: admit to medical IVF: SL Diet: HH DVT Ppx: Lovenox Code: FULL PCP: [facility] Addendum - Attending - Attending Attestation Date/Time: 05/20/20 8401 I personally evaluated the patient and discussed the management with Dr. Hayes. I agree with the History, Examination, Assessment and Plan documented above with any addition or exceptions noted below. Patient stable. Continues to desire d/c home despite her requirement for HFNC. Have discussed with her that she does not have the respiratory status at this time to be medically stable for discharge. Continue usual COVID care, continue HFNC and wean as tolerated.
[2020-05-20] MEDS: Mometasone 100 MCG/Formoterol 5 MCG 120 PUFF INHALER INH SCH ×4 (09:29→19:29)
[2020-05-20] MEDS: Ferrous Sulfate 325 MG TAB PO SCH ×2 (09:30→09:31)
[2020-05-20] MEDS: Ketotifen Fumarate 0.025% Ophth Soln 5 ml Bottle L EYE SCH ×2 (09:32→20:18)
[2020-05-20] MEDS: Enoxaparin Sodium 40 MG/0.4 ML SYRINGE SC SCH (09:32)
[2020-05-20] MEDS: Ketotifen Fumarate 0.025% Ophth Soln 5 ml Bottle R EYE SCH ×2 (09:32→20:18)
[2020-05-20] MEDS: Dexamethasone 4 MG TAB PO SCH (17:36)
--- NOTE | 2020-05-21 06:19 | PDOC.FM ---
- Subjective Subjective: No acute overnight events. Successfully weaned down on HFNC overnight. Feeling well, without complaint this morning. Reports less SOB with exertion last night than previously. She wants to go home as soon as possible, expresses understanding it may take more time than she had hoped. - Objective Vital Signs & Weight: Vital Signs (12 hours) Temp Pulse Resp BP Pulse Ox 05/20/20 23:50 98.4 F 87 18 96/65 99 05/20/20 20:00 97.6 F 99 18 93/67 91 L Weight Weight 90.265 kg I&O: 05/19/20 05/20/20 05/21/20 06:59 06:59 06:59 Intake Total 1080 Balance 1080 Result Diagrams: 05/19/20 06:13 05/19/20 06:13 Phys Exam - Physical Examination Constitutional: NAD HEENT: moist MMs Neck: supple decreased breath sounds bilaterally, no rales or wheezing Cardiovascular: RRR, no significant murmur Gastrointestinal: soft Musculoskeletal: no edema, pulses present Neurological: non-focal, moves all 4 limbs Psychiatric: normal affect, A&O x 3 Skin: normal turgor Dx/Plan - Plan Plan: This is a 54F who presented to the ED with SOB, found to have a b/l PNA. Acute hypoxic respiratory failure and sepsis 2/2 Covid PNA Positive Covid Ab test. Completed course of remdesivir this admission. Decreased HFNC from 55L/79% to 35L/45% and continues to saturate well. - Will continue to wean HFNC as tolerated today. - will continue Decadron, Dulera, Lovenox - PT consulted to help limit deconditioning - continue incentive spirometer - currently only drawing 200 - Spiritual consult Mild dehydration, improved -Monitor I&Os Microcytic anemia -Fe supplementation qod Hypokalemia, resolved -am CMPs. Replete as needed HTN -patient states she is not on home meds -Labetalol PRN -Monitor vitals RA - endorsing mild joint pains Insomnia -will add Melatonin QHS Anxiety/ Depression -patient says she does not take home meds Dipo: admit to medical IVF: SL Diet: HH DVT Ppx: Lovenox Code: FULL PCP: [facility] Addendum - Attending - Attending Attestation Date/Time: 05/21/20 1155 I personally evaluated the patient and discussed the management with Dr. Hayes. I agree with the History, Examination, Assessment and Plan documented above with any addition or exceptions noted below.
[2020-05-21] MEDS: Enoxaparin Sodium 40 MG/0.4 ML SYRINGE SC SCH (08:18)
[2020-05-21] MEDS: Mometasone 100 MCG/Formoterol 5 MCG 120 PUFF INHALER INH SCH ×3 (08:19→17:48)
[2020-05-21] MEDS: Ketotifen Fumarate 0.025% Ophth Soln 5 ml Bottle L EYE SCH ×2 (08:19→19:42)
[2020-05-21] MEDS: Ketotifen Fumarate 0.025% Ophth Soln 5 ml Bottle R EYE SCH ×2 (08:19→19:42)
[2020-05-21] MEDS: Dexamethasone 4 MG TAB PO SCH (16:46)
--- NOTE | 2020-05-22 06:35 | PDOC.FM ---
- Subjective Subjective: No acute overnight events. Resting comfortably in bed without complaint. Her HFNC is only in one nare. She states it has been like that since early evening yesterday. She feels ready to try NC. She reports being less SOB with exertion than previously. - Objective Vital Signs & Weight: Vital Signs (12 hours) Temp Pulse Resp BP Pulse Ox 05/22/20 00:36 96 05/22/20 00:08 97.9 F 87 18 96/65 96 05/21/20 20:00 92 L 05/21/20 19:43 98.8 F 99 18 98/63 92 L Weight Weight 90.265 kg I&O: 05/20/20 05/21/20 05/22/20 06:59 06:59 06:59 Intake Total 650 Balance 650 Result Diagrams: 05/19/20 06:13 05/19/20 06:13 Phys Exam - Physical Examination Constitutional: NAD HEENT: moist MMs Neck: supple Respiratory: no rales occasional wheezes, somewhat decreased breath sounds bilaterally Cardiovascular: RRR, no significant murmur Gastrointestinal: soft, non-tender Musculoskeletal: no edema, pulses present Neurological: non-focal, moves all 4 limbs Psychiatric: normal affect, A&O x 3 Skin: normal turgor Dx/Plan - Plan Plan: This is a 54F who presented to the ED with SOB, found to have a b/l PNA. Acute hypoxic respiratory failure and sepsis 2/2 Covid PNA Positive Covid Ab test. Completed course of remdesivir this admission. HFNC settings on 30L/37% this AM, spO2 96% with only in one nare. - Removed HFNC and placed on 4L NC, saturating 100% and patient comfortable - Will continue to wean NC as tolerated today to establish baseline for home O2 - will continue Decadron, Dulera, Lovenox - PT consulted to help limit deconditioning - continue incentive spirometer Microcytic anemia -Fe supplementation qod HTN -patient states she is not on home meds -Labetalol PRN -Monitor vitals RA - endorsing mild joint pains Insomnia -will add Melatonin QHS Anxiety/ Depression -patient says she does not take home meds Dipo: admit to medical, possible DC to home with O2 soon if tolerates NC well IVF: SL Diet: HH DVT Ppx: Lovenox Code: FULL PCP: [facility] Addendum - Attending - Attending Attestation Date/Time: 05/22/20 4533 I personally evaluated the patient and discussed the management with Dr. Hayes. I agree with the History, Examination, Assessment and Plan documented above with any addition or exceptions noted below. Patient overall stable. Continue to wean HFNC as tolerated.
[2020-05-22] MEDS: Enoxaparin Sodium 40 MG/0.4 ML SYRINGE SC SCH (09:32)
[2020-05-22] MEDS: Mometasone 100 MCG/Formoterol 5 MCG 120 PUFF INHALER INH SCH ×2 (09:33→19:02)
[2020-05-22] MEDS: Ketotifen Fumarate 0.025% Ophth Soln 5 ml Bottle L EYE SCH ×2 (09:35→20:28)
[2020-05-22] MEDS: Ketotifen Fumarate 0.025% Ophth Soln 5 ml Bottle R EYE SCH ×2 (09:35→20:28)
[2020-05-22] MEDS: Dexamethasone 4 MG TAB PO SCH (18:40)
[2020-05-23] MEDS: Mometasone 100 MCG/Formoterol 5 MCG 120 PUFF INHALER INH SCH (05:41)
--- NOTE | 2020-05-23 06:15 | PDOC.FM ---
- Subjective Subjective: No acute overnight events. Remained stable on 3L NC overnight, weaned to 2L NC this morning. She is feeling well and has no complaints. Denies SOB on exertion. - Objective Vital Signs & Weight: Vital Signs (12 hours) Temp Pulse Resp BP Pulse Ox 05/23/20 05:35 77 104/70 99 05/23/20 02:02 99 05/23/20 01:50 95 05/23/20 00:20 98.7 F 78 16 95/64 100 05/22/20 20:00 98.8 F 92 18 96/60 95 Weight Admit Weight 90.265 kg Weight 90.265 kg I&O: 05/21/20 05/22/20 05/23/20 06:59 06:59 06:59 Intake Total 650 120 Balance 650 120 Result Diagrams: 05/19/20 06:13 05/19/20 06:13 Phys Exam - Physical Examination Constitutional: NAD HEENT: moist MMs Neck: supple few coarse breath sounds bilaterally Gastrointestinal: soft, non-tender Musculoskeletal: no edema, pulses present Neurological: moves all 4 limbs Psychiatric: normal affect, A&O x 3 Skin: no rash Dx/Plan - Plan Plan: This is a 54F who presented to the ED with SOB, found to have a b/l PNA. Acute hypoxic respiratory failure and sepsis 2/2 Covid PNA Positive Covid Ab test. Completed course of remdesivir this admission. Transitioned from HFNC to NC yesterday, stable on 3L overnight. - Will continue to wean NC as tolerated today - home O2 eval to be performed, if she can be weaned off completely today including while ambulating, she may possibly be discharged - will continue Decadron, Dulera, Lovenox - PT consulted to help limit deconditioning - continue incentive spirometer Microcytic anemia -Fe supplementation qod HTN -patient states she is not on home meds -Labetalol PRN -Monitor vitals RA - endorsing mild joint pains Insomnia -will add Melatonin QHS Anxiety/ Depression -patient says she does not take home meds Dipo: admit to medical, possible DC pending home O2 eval IVF: SL Diet: HH DVT Ppx: Lovenox Code: FULL PCP: [facility] Addendum - Attending - Attending Attestation Date/Time: 05/23/20 1120 I personally evaluated the patient and discussed the management with Dr. Hayes. I agree with the History, Examination, Assessment and Plan documented above with any addition or exceptions noted below. Patient stable. Doing well on NC. She feels well at rest and with exertion. She will need O2 for exertion but is stable for discharge if we can get that set up today.
[2020-05-23] MEDS: Enoxaparin Sodium 40 MG/0.4 ML SYRINGE SC SCH (07:34)
[2020-05-23] MEDS: Ferrous Sulfate 325 MG TAB PO SCH (07:34)
[2020-05-23] MEDS: Ketotifen Fumarate 0.025% Ophth Soln 5 ml Bottle L EYE SCH (07:35)
[2020-05-23] MEDS: Ketotifen Fumarate 0.025% Ophth Soln 5 ml Bottle R EYE SCH (07:35)
[2020-05-23 14:48] VITALS: BP 122/80; TEMP 98.3
== END 2020-05-23 15:36 | disposition home or self-care (01) | DRG 871 ==
LOC: 2SE 05-13 01:00 → 2SW 05-15 12:25 → T4-A 05-16 11:00
PROVIDERS: ADMIT Emergency Medicine; ATTEND Emergency Medicine
PROC: 8E0ZXY6 Isolation (ICD-10-PCS; principal; 2020-05-13)
PROC: XW033E5 Introduction of Remdesivir Anti-infective into Peripheral Vein, Percutaneous Approach, New Technology Group 5 (ICD-10-PCS; 2020-05-15)
DX: A41.89 Other specified sepsis (principal); U07.1 COVID-19; J12.89 Other viral pneumonia; J96.01 Acute respiratory failure with hypoxia; I10 Essential (primary) hypertension; M06.9 Rheumatoid arthritis, unspecified; M54.5 Low back pain; G89.29 Other chronic pain; F41.9 Anxiety disorder, unspecified; G47.00 Insomnia, unspecified; E86.0 Dehydration; D50.9 Iron deficiency anemia, unspecified; F32.9 Major depressive disorder, single episode, unspecified; Z79.899 Other long term (current) drug therapy
CPT/HCPCS: 36415; 36600; 71045; 80048; 80053; 80076; 82728; 82805; 83540; 83550; 83615; 83735; 83880; 84100; 84145; 85025; 85379; 86140; 86769; 87040; 87635; J0456; J0696; J1650; J3490; J7050; J8540; U0003